=== PATIENT | female | born 1950 | race Caucasian/White ===

== ENCOUNTER → 2016-06-19 | Outpatient (CLI) | payer OTHER ==
[~2016-06-19] MED LIST: ACET-1311 PO; ACET650S10 PR; BISA10SU38 PR; CHOL1CAP57 PO; CLC100X PO; CRAN1CAP6 PO; CRAN1TAB9 PO; CRANLIQ PO; CYCL10TA6 PO; DEXT30TA7 PO; ESCI1TAB10 PO; GABA300C19 PO; GLAT1INJ SC; METH-1117 PO; MOML PO; MTR500 PO; NORT75CA PO; NUTR-238 PO; POLY335025 PO; PRED10TA PO; RISP1TAB68 PO; SACC250C PO; SENN1TAB66 PO; SODIENE PR; TRAM-10 PO
[2016-06-19 13:59] LABS: URINE APPEARANCE TURBID (CLEAR); URINE BILIRUBIN NEG (NEG); URINE COLOR DK YELLOW; URINE NITRITE POS (NEG); URINE PH 5.5 (4.5-7.5); URINE SPECIFIC GRAVITY 1.018 (1.000-1.030); UROBILINOGEN NEG (NEG)
[2016-06-19 14:21] LABS: MANUAL MICROSCOPIC REQUIRED? NO; REVIEW REQ? YES
== END ==
LOC: C.LABCC 12:15
PROVIDERS: ATTEND Internal Medicine
DX: R41.82 Altered mental status, unspecified (principal)

== ENCOUNTER → 2016-08-13 | Outpatient (CLI) | payer OTHER ==
[2016-08-13 08:46] LABS: URINE APPEARANCE CLEAR (CLEAR); URINE BILIRUBIN NEG (NEG); URINE COLOR DK YELLOW; URINE NITRITE NEG (NEG); URINE PH 5.5 (4.5-7.5); URINE SPECIFIC GRAVITY 1.022 (1.000-1.030); UROBILINOGEN NEG (NEG)
[2016-08-13 08:47] LABS: MANUAL MICROSCOPIC REQUIRED? NO; REVIEW REQ? NO
== END ==
LOC: C.LABCC 08:06
PROVIDERS: ATTEND Internal Medicine
DX: R41.0 Disorientation, unspecified (principal); R53.1 Weakness

== ENCOUNTER → 2016-08-30 | Outpatient (CLI) | payer OTHER ==
[2016-08-30 15:16] LABS: URINE APPEARANCE TURBID (CLEAR); URINE BILIRUBIN NEG (NEG); URINE COLOR DK YELLOW; URINE NITRITE POS (NEG); URINE SPECIFIC GRAVITY 1.018 (1.000-1.030); UROBILINOGEN NEG (NEG)
[2016-08-30 15:17] LABS: MANUAL MICROSCOPIC REQUIRED? NO
[2016-08-30 16:00] LABS: REVIEW REQ? NO
== END ==
LOC: C.LABCC 11:11
PROVIDERS: ATTEND Internal Medicine
DX: R41.82 Altered mental status, unspecified (principal)

== ENCOUNTER → 2016-09-01 | Outpatient (CLI) | payer OTHER ==
[2016-09-01 10:01] LABS: BASO % 0.5 %; BASO ABS # 0.03 K/uL (0-0.2); COMPLETE YES; EOS % 3.6 %; HEMATOCRIT 39.3 % (37-47); IG% 0.2 %; LYMPH ABS # 1.78 K/uL (1.2-3.4); MEAN CELL VOLUME 89.1 fL (80-100); MEAN CORPUSCULAR HGB CONC 32.6 g/dl (32-36); MEAN PLATELET VOLUME 13.4 fL (7.4-10.4); MONO % 6.3 %; NEUT % 57.4 %; PLATELET COUNT 190 K/uL (130-400); RED BLOOD COUNT 4.41 M/uL (4.2-5.4); WHITE BLOOD COUNT 5.57 K/uL (4.8-10.8)
[2016-09-01 10:10] LABS: ALT/SGPT 9 U/L (12-78); AST/SGOT 9 U/L (15-37); BLOOD UREA NITROGEN 20 mg/dl (7-18); CALCIUM 9.3 mg/dl (8.5-10.1); CARBON DIOXIDE 31 mmol/L (21-32); CHLORIDE 106 mmol/L (98-107); CREATININE 0.47 mg/dl (0.60-1.20); GLUCOSE 73 mg/dl (70-99); SODIUM 142 mmol/L (136-145)
[2016-09-01 10:20] LABS: ALB/GLOB RATIO 0.8 (0.9-2); ALKALINE PHOSPHATASE 59 U/L (45-117); THYROID STIMULATING HORMONE 0.935 uIu/ml (0.300-4.500)
--- NOTE | 2016-09-05 11:46 | CODING QUERY MEDICAL NECESSITY ---
SUPPORTING DIAGNOSIS NEEDED A supporting diagnosis is required for the test/procedure performed on this patient in order for us to be reimbursed by the patient's insurance. Please provide a supporting diagnosis for the following test/procedure listed below next to the test name along with your signature. *If there is no additional diagnosis for this patient that would support the following test/procedure please document that below next to the test/procedure. Test(s)/Procedure(s) that require a supporting diagnosis: DOS 09/01 * Vitamin D DIAGNOSIS: * Vitamin B12 DIAGNOSIS: * TSH DIAGNOSIS: Provider Signature: Date: Thank you Shantal Wallace Health Information Management Once completed, please kindly fax back to [phone] For questions please call [phone]
== END ==
LOC: C.LABCC 09:25
PROVIDERS: ATTEND Internal Medicine
DX: G35 Multiple sclerosis (principal); R41.81 Age-related cognitive decline

== ENCOUNTER → 2016-09-29 | Outpatient (CLI) | payer OTHER ==
[~2016-09-29] MED LIST changes: +GABA-1218 PO; -GABA300C19 PO
[2016-09-29 18:22] LABS: URINE APPEARANCE TURBID (CLEAR); URINE BILIRUBIN NEG (NEG); URINE COLOR YELLOW; URINE EPITHELIAL CELL AUTO 0-5 /lpf (0-5); URINE NITRITE NEG (NEG); URINE PH 6.5 (4.5-7.5); URINE SPECIFIC GRAVITY 1.014 (1.000-1.030); UROBILINOGEN NEG (NEG)
[2016-09-29 18:23] LABS: MANUAL MICROSCOPIC REQUIRED? NO; REVIEW REQ? NO
== END ==
LOC: C.LABCC 17:41
PROVIDERS: ATTEND Internal Medicine
DX: R41.82 Altered mental status, unspecified (principal)

== ENCOUNTER → 2016-11-13 | Outpatient (CLI) | payer OTHER | END | disposition home or self-care (01) | LOC: C.LABCC 07:57 | PROVIDERS: ATTEND Internal Medicine | DX: T14.8 Other injury of unspecified body region (principal); X58.XXXA Exposure to other specified factors, initial encounter ==

== ENCOUNTER → 2016-11-27 | Outpatient (CLI) | payer OTHER ==
[2016-11-27 08:55] LABS: ALT/SGPT 10 U/L (12-78); BLOOD UREA NITROGEN 26 mg/dl (7-18); BUN/CREATININE RATIO 55.5 (10-20); CARBON DIOXIDE 30 mmol/L (21-32); CHLORIDE 109 mmol/L (98-107); CHOLESTEROL 134 mg/dl (0-200); CREATININE 0.47 mg/dl (0.60-1.20); GLUCOSE 76 mg/dl (70-99); POTASSIUM 3.5 mmol/L (3.5-5.1); SODIUM 147 mmol/L (136-145); TRIGLYCERIDES 67 mg/dl (0-150); VERY LOW DENSITY LIPOPROT CALC 13 mg/dl
[2016-11-27 08:59] LABS: ALB/GLOB RATIO 0.9 (0.9-2); ALKALINE PHOSPHATASE 56 U/L (45-117); AST/SGOT 8 U/L (15-37); CHOLESTEROL/HDL RATIO 3.3; HDL CHOLESTEROL 41 mg/dl; LDL CHOLESTEROL CALCULATED 80 mg/dl
== END ==
LOC: C.LABCC 07:51
PROVIDERS: ATTEND Internal Medicine
DX: G35 Multiple sclerosis (principal); E55.9 Vitamin D deficiency, unspecified; E78.5 Hyperlipidemia, unspecified

== ENCOUNTER → 2016-12-04 | Outpatient (CLI) | payer OTHER ==
[~2016-12-04] MED LIST changes: -GABA-1218 PO; +GABA300C19 PO
== END ==
LOC: C.LABCC 07:47
PROVIDERS: ATTEND Internal Medicine
DX: E55.9 Vitamin D deficiency, unspecified (principal)

== ENCOUNTER 2017-02-12 10:23 | Inpatient (IN) | payer OTHER ==
[~2017-02-12] VITALS: Ht 165.1 cm; Wt 39.9 kg
[~2017-02-12 10:23] MED LIST changes: -CHOL1CAP57 PO; -CRAN1CAP6 PO; -METH-1117 PO
[2017-02-12] MEDS ORDERED: SODIUM CHLORIDE 0.9% 1000ML 1,000 ML IV ONE (10:54)
[2017-02-12 11:09] LABS: BASO % 0.4 %; BASO ABS # 0.04 K/uL (0-0.2); COMPLETE YES; HEMATOCRIT 46.5 % (37-47); IG% 0.1 %; LYMPH % 15.6 %; MEAN CELL VOLUME 88.2 fL (80-100); MEAN CORPUSCULAR HEMOGLOBIN 28.5 pg (25-34); MEAN CORPUSCULAR HGB CONC 32.3 g/dl (32-36); MEAN PLATELET VOLUME 12.5 fL (7.4-10.4); MONO % 4.2 %; NEUT % 79.7 %; PLATELET COUNT 279 K/uL (130-400); RED BLOOD COUNT 5.27 M/uL (4.2-5.4); WHITE BLOOD COUNT 8.97 K/uL (4.8-10.8)
--- NOTE | 2017-02-12 11:15 | DIAGNOSTIC IMAGING REPORT ---
SINGLE VIEW CHEST CLINICAL HISTORY: Sepsis. FINDINGS: An AP, portable, semierect chest radiograph is compared to study dated 08/30/2015. Correlation is made with chest CT dated 10/12/2014. The examination is severely degraded by portable technique, apical lordotic positioning, and patient rotation. The heart is normal in size and there is atherosclerotic calcification with uncoiling of the thoracic aorta. No airspace consolidation or large pleural effusion is seen. Apparent density at the right apex is likely related to significant patient rotation. No pneumothorax is seen. The skeletal structures are osteopenic. The bony thorax is grossly intact. IMPRESSION: No acute cardiopulmonary abnormality. Electronically signed by: Flaco Mar M.D. 02/12/2017 11:14 AM Dictated Date/Time: 02/12/2017 11:12 AM
[2017-02-12 11:17] LABS: ALT/SGPT 10 U/L (12-78); BLOOD UREA NITROGEN 27 mg/dl (7-18); BUN/CREATININE RATIO 85.6 (10-20); CALCIUM 10.2 mg/dl (8.5-10.1); CARBON DIOXIDE 22 mmol/L (21-32); CHLORIDE 106 mmol/L (98-107); CREATININE 0.32 mg/dl (0.60-1.20); GLUCOSE 75 mg/dl (70-99); POTASSIUM 3.6 mmol/L (3.5-5.1); SODIUM 141 mmol/L (136-145)
[2017-02-12 11:20] LABS: URINE APPEARANCE TURBID (CLEAR); URINE BILIRUBIN NEG (NEG); URINE COLOR DK YELLOW; URINE EPITHELIAL CELL AUTO >30 /lpf (0-5); URINE NITRITE POS (NEG); URINE PH 5.5 (4.5-7.5); URINE SPECIFIC GRAVITY 1.025 (1.000-1.030); UROBILINOGEN NEG (NEG); ZZURINE CULT IF INDIC CATH YES
[2017-02-12 11:22] LABS: ALB/GLOB RATIO 0.9 (0.9-2); ALKALINE PHOSPHATASE 70 U/L (45-117); AST/SGOT 13 U/L (15-37)
[2017-02-12 11:24] LABS: MANUAL MICROSCOPIC REQUIRED? NO; REVIEW REQ? YES
[2017-02-12] MEDS ORDERED: METH-1117 PO (11:33)
[2017-02-12] MEDS ORDERED: CHOL1CAP57 PO (11:33)
[2017-02-12] MEDS ORDERED: CRAN1CAP6 PO (11:33)
[2017-02-12 11:37] LABS: URINE MUCUS PRESENT (NONE PRSENT)
--- NOTE | 2017-02-12 11:46 | EMERGENCY ROOM VISIT NOTE ---
History Report prepared by Lulu: Andi Santiago Under the Supervision of: Dr. Cm Castañeda M.D. First contact with patient: 10:51 Chief Complaint: WEAKNESS Stated Complaint: LETHARGY/DEHYDRATION Nursing Triage Summary: pt from [facility]. reported last 3 days decreased appetite and increased lethargy. normal presentation as per rn at [facility] is "verbal and cooperative". currently eyes closed, occasional moaning. As per family "might be a UTI". ALS reports pt is DNR. History of Present Illness The patient is a 66 year old female who presents to the Emergency Room with complaints of constant weakness for the past three days. Per the patient's daughter the patient has been more lethargic, disoriented, and decreased appetite. Per the patient's daughter states that the patient has a slight chronic cough, she is incontinent, and she has a history of MS. The patient is denying any nausea or vomiting, though the daughter states the patient's breath smells like vomit. The daughter additionally states that the patient has been losing weight, though she states that the patient does not want a feeding tube. The patient is not on any blood thinners, but she takes gabapentin, and she gets a shot for her MS. The daughter states that the patient has not had any medications since Thursday since she has been refusing them. Source of History: patient, family Onset: three days ago Position: other (global) Quality: other (weakness) Timing: constant Associated Symptoms: + cough, No nausea, No vomiting Review of Systems See HPI for pertinent positives and negatives. A total of ten systems were reviewed and were otherwise negative. Past Medical & Surgical Medical Problems: (1) C. difficile colitis (2) Chest pain (3) Confusion (4) Multiple sclerosis (5) Neuropathic pain (6) Pneumobilia (7) Sepsis (8) Weakness Family History FH: brain aneurysm FH: cancer Social History Smoking Status: Unknown if Ever Smoked Alcohol Use: none Drug Use: none Marital Status: single, Housing Status: assisted living Occupation Status: unemployed Current/Historical Medications Scheduled Bisacodyl (Dulcolax), 1 SUPP ND Q2D Cholecalciferol (Vitamin D3), 1,000 UNITS PO DAILY Cranberry (Vaccinium Macrocarp (Cranberry), 250 MG PO BID Escitalopram Oxalate (Lexapro), 20 MG PO DAILY Gabapentin (Neurontin), 300 MG PO QID Glatiramer Acetate (Copaxone), 40 MG SC 3XWK Magnesium Hydroxide (Milk Of Magnesia), 30 ML PO UD Methenamine Hippurate (Hiprex), 1 GM PO BID Nortriptyline Hcl (Pamelor), 75 MG PO QPM Nutritional Supplements (Nutritional Drink), 180 ML PO QID Polyethylene Glycol 3350 (Miralax), 17 GM PO QD@1200 Risperidone (Risperdal), 1 MG PO HS Sennosides-Docusate Sodium (Senna/Docusate Sodium), 2 TAB PO BID Tramadol (Ultram), 50 MG PO HS Scheduled PRN Acetaminophen (Tylenol), 650 MG PO Q4H PRN for Mild Pain Acetaminophen (Tylenol), 650 MG ND Q4H PRN for MILD PAIN Sodium Phosphate/Biphosphate (Fleet Enema), 1 EA ND DAILY PRN for Constipation Allergies Coded Allergies: Latex (Verified Allergy, Mild, ., 02/12/17) Physical Exam Vital Signs Date Time Temp Pulse Resp B/P (MAP) Pulse Ox O2 Delivery O2 Flow Rate FiO2 02/12/17 14:23 77 145/92 97 Room Air 02/12/17 13:30 95 Room Air 02/12/17 13:01 71 16 141/85 95 Room Air 02/12/17 12:12 81 16 167/103 98 Room Air 02/12/17 11:19 86 18 145/95 96 Room Air 02/12/17 11:09 Room Air 02/12/17 10:41 83 02/12/17 10:30 36.4 77 24 152/101 94 Room Air Physical Exam GENERAL: Awake, chronically ill-appearing, in no distress HENT: Dry mucous membranes. Thrush on her tongue and posterior pharynx. Normocephalic, atraumatic. Oropharynx unremarkable. EYES: Normal conjunctiva. Sclera non-icteric. NECK: Supple. No nuchal rigidity. FROM. No JVD. RESPIRATORY: Decreased breath sounds bilaterally. CARDIAC: Regular rate, normal rhythm. Extremities warm and well perfused. Pulses equal. ABDOMEN: Soft, non-distended. No tenderness to palpation. No rebound or guarding. No masses. RECTAL: Deferred. MUSCULOSKELETAL: Chest examination reveals no tenderness. The back is symmetrical on inspection without obvious abnormality. There is no CVA tenderness to palpation. No joint edema. LOWER EXTREMITIES: Calves are equal size bilaterally and non-tender. No edema. No discoloration. NEURO: 3/5 strength in all extremities. Appears alert to self. Follows some basic commands. Motor is limited from her MS. Normal sensorium. No sensory deficits noted. SKIN: No rash or jaundice noted. Medical Decision & Procedures ER Provider Diagnostic Interpretation: Radiology results as stated below per my review and radiologist interpretation: CT SCAN OF THE BRAIN WITHOUT IV CONTRAST CLINICAL HISTORY: Lethargy. Dehydration. COMPARISON STUDY: CT of the brain dated 08/02/2015. TECHNIQUE: Unenhanced axial CT scan of the brain is performed from the vertex to the skull base. The examination is degraded by motion artifact. The patient was scanned twice in an attempt to improve image quality. The examination is also degraded by suboptimal positioning within the CT gantry. CT DOSE: 1277.12 mGycm FINDINGS: Brain parenchyma: There are age-related involutional changes noting moderate patchy subcortical and periventricular microangiopathic change. There is no hemorrhage, mass effect, or evidence of acute territorial ischemia by CT criteria. Chronic lacunar infarcts are present within the subcortical and periventricular white matter. Rubio-white matter is preserved. No extra-axial fluid collection is seen. Ventricles, sulci, cisterns: Prominent secondary to involutional change. Intracranial vasculature: There is atherosclerotic calcification of the cavernous carotid vertebral arteries. Calvarium: Unremarkable. Sinuses and mastoids: The visualized paranasal sinuses are clear. The mastoid air cells are well pneumatized. Orbits: The bony orbits are grossly intact. There are bilateral ocular lens implants. IMPRESSION: There is no hemorrhage, mass effect, or evidence of acute territorial ischemia by CT criteria noting a motion degraded examination. Electronically signed by: Flaco Mar M.D. 02/12/2017 11:50 AM Dictated Date/Time: 02/12/2017 11:47 AM SINGLE VIEW CHEST CLINICAL HISTORY: Sepsis. FINDINGS: An AP, portable, semierect chest radiograph is compared to study dated 08/30/2015. Correlation is made with chest CT dated 10/12/2014. The examination is severely degraded by portable technique, apical lordotic positioning, and patient rotation. The heart is normal in size and there is atherosclerotic calcification with uncoiling of the thoracic aorta. No airspace consolidation or large pleural effusion is seen. Apparent density at the right apex is likely related to significant patient rotation. No pneumothorax is seen. The skeletal structures are osteopenic. The bony thorax is grossly intact. IMPRESSION: No acute cardiopulmonary abnormality. Electronically signed by: Flaco Mar M.D. 02/12/2017 11:14 AM Dictated Date/Time: 02/12/2017 11:12 AM Laboratory Results 02/12/17 10:38 Red Blood Count 5.27, Mean Corpuscular Volume 88.2, Mean Corpuscular Hemoglobin 28.5, Mean Corpuscular Hemoglobin Concent 32.3, Mean Platelet Volume 12.5, Neutrophils (%) (Auto) 79.7, Lymphocytes (%) (Auto) 15.6, Monocytes (%) (Auto) 4.2, Eosinophils (%) (Auto) 0.0, Basophils (%) (Auto) 0.4, Neutrophils # (Auto) 7.14, Lymphocytes # (Auto) 1.40, Monocytes # (Auto) 0.38, Eosinophils # (Auto) 0.00, Basophils # (Auto) 0.04 02/12/17 10:38 Test 02/12/17 10:38 02/12/17 10:55 02/12/17 11:35 White Blood Count 8.97 K/uL (4.8-10.8) Red Blood Count 5.27 M/uL (4.2-5.4) Hemoglobin 15.0 g/dL (12.0-16.0) Hematocrit 46.5 % (37-47) Mean Corpuscular Volume 88.2 fL (80-100) Mean Corpuscular Hemoglobin 28.5 pg (25-34) Mean Corpuscular Hemoglobin Concent 32.3 g/dl (32-36) Platelet Count 279 K/uL (130-400) Mean Platelet Volume 12.5 fL (7.4-10.4) Neutrophils (%) (Auto) 79.7 % Lymphocytes (%) (Auto) 15.6 % Monocytes (%) (Auto) 4.2 % Eosinophils (%) (Auto) 0.0 % Basophils (%) (Auto) 0.4 % Neutrophils # (Auto) 7.14 K/uL (1.4-6.5) Lymphocytes # (Auto) 1.40 K/uL (1.2-3.4) Monocytes # (Auto) 0.38 K/uL (0.11-0.59) Eosinophils # (Auto) 0.00 K/uL (0-0.5) Basophils # (Auto) 0.04 K/uL (0-0.2) RDW Standard Deviation 44.8 fL (36.4-46.3) RDW Coefficient of Variation 13.9 % (11.5-14.5) Immature Granulocyte % (Auto) 0.1 % Immature Granulocyte # (Auto) 0.01 K/uL (0.00-0.02) Prothrombin Time 11.0 SECONDS (9.0-12.0) Prothromb Time International Ratio 1.0 (0.9-1.1) Anion Gap 13.0 mmol/L (3-11) Estimated GFR () 135.4 Estimated GFR (Non- 116.8 BUN/Creatinine Ratio 85.6 (10-20) Calcium Level 10.2 mg/dl (8.5-10.1) Total Bilirubin 0.9 mg/dl (0.2-1) Aspartate Amino Transf (AST/SGOT) 13 U/L (15-37) Alanine Aminotransferase (ALT/SGPT) 10 U/L (12-78) Alkaline Phosphatase 70 U/L (45-117) Troponin I < 0.015 ng/ml (0-0.045) Total Protein 7.4 gm/dl (6.4-8.2) Albumin 3.5 gm/dl (3.4-5.0) Globulin 3.9 gm/dl (2.5-4.0) Albumin/Globulin Ratio 0.9 (0.9-2) Urine Color DK YELLOW Urine Appearance TURBID (CLEAR) Urine pH 5.5 (4.5-7.5) Urine Specific [place] 1.025 (1.000-1.030) Urine Protein 2+ (NEG) Urine Glucose (UA) NEG (NEG) Urine Ketones 4+ (NEG) Urine Occult Blood 3+ (NEG) Urine Nitrite POS (NEG) Urine Bilirubin NEG (NEG) Urine Urobilinogen NEG (NEG) Urine Leukocyte Esterase LARGE (NEG) Urine WBC (Auto) >30 /hpf (0-5) Urine RBC (Auto) >30 /hpf (0-4) Urine Hyaline Casts (Auto) 1-5 /lpf (0-5) Urine Epithelial Cells (Auto) >30 /lpf (0-5) Urine Bacteria (Auto) NEG (NEG) Urine Crystals AMORPHOUS SEDIMENT (NONE Urine Pathogenic Casts /lpf (0) Urine Mucus PRESENT (NONE PRSENT) Urine Yeast (Auto) (NONE PRSENT) Lactic Acid Level 1.5 mmol/L (0.4-2.0) Laboratory results reviewed by me Medications Administered Medications (Trade) Dose Ordered Sig/Jen Route Start Time Stop Time Status Last Admin Dose Admin Sodium Chloride 1,000 ml @ 999 mls/hr Q1H1M ONCE IV 02/12/17 10:54 02/12/17 11:54 DC 02/12/17 11:19 999 MLS/HR Piperacillin Sod/ Tazobactam Sod (Zosyn Iv) 4.5 gm NOW STAT IV 02/12/17 12:42 02/12/17 12:44 DC 02/12/17 12:42 4.5 GM Vancomycin HCl (Vancomycin 1gm/ 270ml Nss) 1 gm NOW STAT IV 02/12/17 12:42 02/12/17 12:44 DC 02/12/17 12:51 1 GM Sodium Chloride 1,000 ml @ 999 mls/hr Q1H1M STAT IV 02/12/17 12:42 02/12/17 13:42 DC 02/12/17 12:52 999 MLS/HR ECG Indication: weakness Rate (beats per minute): 93 Rhythm: sinus rhythm Findings: nonspecific-ST abn (Lateral), PVC (occasional), left axis deviation Comparison ECG Date: 08/03 Change: no significant change ED Course 1051: The patient was evaluated in room A10. A complete history and physical exam was performed. 1054: Sodium Chloride 1000 ml @ 999 mls/hr IV 1242: Sodium Chloride 1000 ml @ 999 mls/hr IV, Vancomycin HCl 1gm IV, Zosyn IV 4.5gm IV 1249: Discussed the patient's case with Dr. Saba, [facility] Hospitalist. The patient will be evaluated for further treatment and disposition. Medical Decision I reviewed the patient's past medical history, medications, and the nursing notes as described above. Differential diagnoses: Sepsis, pneumonia, UTI, dehydration. electrolyte abnormality, and intracranial hemorrhage. The patient is a 66-year-old woman with a past medical history of MS who presents from her alf facility with worsening mental status since Thursday and decreased oral intake per history of present illness. On arrival the patient will open her eyes and follow some simple commands but otherwise is limited in her motor function diffusely in the setting of her MS but worse from her recent baseline. Appears clinically dry. Otherwise is afebrile with stable vital signs. Septic eval initiated. Chest x-ray unremarkable. UA grossly positive. Given the patient's hospital exposures treated with broad- spectrum antibiotics at this time. Patient given IV fluid hydration, with BUN/ creatinine> 30 consistent with the patient's clinically dry appearance. Otherwise CT head negative and chest x-ray unremarkable. Case discussed with the medicine team who will admit the patient for further management. Medication Reconcilliation Current Medication List: was personally reviewed by me Blood Pressure Screening Patient's blood pressure: Elevated blood pressure Managed by the hospitalist Consults Time Called: 1247 Consulting Physician: Dr. Saba Returned Call: 1249 Discussed the patient's case with Dr. Saba, [facility] Hospitalist. The patient will be evaluated for further treatment and disposition. Impression Primary Impression: UTI (urinary tract infection) Additional Impression: Dehydration Scribe Attestation The scribe's documentation has been prepared under my direction and personally reviewed by me in its entirety. I confirm that the note above accurately reflects all work, treatment, procedures, and medical decision making performed by me. Departure Information Dispostion Being Evaluated By Hospitalist Referrals [facility] (PCP) Patient Instructions [facility] Problem Qualifiers
--- NOTE | 2017-02-12 11:51 | DIAGNOSTIC IMAGING REPORT ---
CT SCAN OF THE BRAIN WITHOUT IV CONTRAST CLINICAL HISTORY: Lethargy. Dehydration. COMPARISON STUDY: CT of the brain dated 08/02/2015. TECHNIQUE: Unenhanced axial CT scan of the brain is performed from the vertex to the skull base. The examination is degraded by motion artifact. The patient was scanned twice in an attempt to improve image quality. The examination is also degraded by suboptimal positioning within the CT gantry. CT DOSE: 1277.12 mGycm FINDINGS: Brain parenchyma: There are age-related involutional changes noting moderate patchy subcortical and periventricular microangiopathic change. There is no hemorrhage, mass effect, or evidence of acute territorial ischemia by CT criteria. Chronic lacunar infarcts are present within the subcortical and periventricular white matter. Rubio-white matter is preserved. No extra-axial fluid collection is seen. Ventricles, sulci, cisterns: Prominent secondary to involutional change. Intracranial vasculature: There is atherosclerotic calcification of the cavernous carotid vertebral arteries. Calvarium: Unremarkable. Sinuses and mastoids: The visualized paranasal sinuses are clear. The mastoid air cells are well pneumatized. Orbits: The bony orbits are grossly intact. There are bilateral ocular lens implants. IMPRESSION: There is no hemorrhage, mass effect, or evidence of acute territorial ischemia by CT criteria noting a motion degraded examination. Electronically signed by: Flaco Mar M.D. 02/12/2017 11:50 AM Dictated Date/Time: 02/12/2017 11:47 AM
[2017-02-12] MEDS ORDERED: PIPERACILLIN/TAZOBACTAM 4.5 GM/100ML D5W IV STA (12:42)
[2017-02-12] MEDS ORDERED: VANCOMYCIN 1GM/270ML NSS IV STA (12:42)
[2017-02-12] MEDS ORDERED: SODIUM CHLORIDE 0.9% 1000ML 1,000 ML IV STA (12:42)
[2017-02-12 13:30] VITALS: O2SAT 95; Ht 165.1 cm; Wt 39.9 kg
[2017-02-12] MEDS ORDERED: ACETAMINOPHEN 325 MG TAB PO PRN ×2 (14:00→14:45)
[2017-02-12] MEDS ORDERED: MAGNESIUM HYDROXIDE SUSP 30 ML UDC PO PRN ×2 (14:00→14:45)
[2017-02-12] MEDS ORDERED: POLYETHYLENE (MIRALAX) 17 GM PACK PO PRN (14:00)
[2017-02-12] MEDS ORDERED: NITROGLYCERIN 0.4 MG SL PER TAB CHARGE SL PRN (14:00)
[2017-02-12] MEDS ORDERED: ONDANSETRON INJ 2 MG/ML 2 ML VIAL IV PRN (14:00)
[2017-02-12] MEDS ORDERED: ENOXAPARIN 30 MG/0.3 ML SYR SC SCH (14:00)
--- NOTE | 2017-02-12 14:16 | History and Physical ---
History & Physical Date & Time of Service: Feb 12, 2017 at 14:05 Chief Complaint: Lethargy/Dehydration Primary Care Physician: Abebe Worrell History of Present Illness Source: patient Patient is a 66 year old female with a history of Multiple Sclerosis, Depression with Psychotic features, and urinary incontinence that presents with a 3 day history of weakness, confusion, and altered mental status. The patient is currently living at [facility] and is bed bound due to her Multiple Sclerosis. The family began noticing she was having an altered mental status Thursday and she has been refusing all of her medications since that time. The daughter describes an episode on Thursday where her aunt was trying to wake her while visiting at [facility] and having difficulty arousing which is unusual. Over the last 2 days the family has been monitoring her progress and she has not been improving, continuing to decline in terms of her cognitive and physical functioning so they decided to bring her to the emergency department. The daughter also mentions that she has been experiencing a significant weight loss over the last few months and is frequently not wanting to eat. Past Medical/Surgical History Medical Problems: (1) Multiple sclerosis Status: Chronic (2) Neuropathic pain Status: Chronic Family History FH: brain aneurysm FH: cancer Social History Smoking Status: Unknown if Ever Smoked Drug Use: none Marital Status: single, Occupational Status: unemployed Immunizations History of Influenza Vaccine: No History of Tetanus Vaccine?: cannot remember her last immunization History of Pneumococcal: No History of Hepatitis B Vaccine: No Multi-Drug Resistant Organisms History of MDRO: No Allergies Coded Allergies: Latex (Verified Allergy, Mild, ., 02/12/17) Home Medications Scheduled Bisacodyl (Dulcolax), 1 SUPP OR Q2D Cholecalciferol (Vitamin D3), 1,000 UNITS PO DAILY Cranberry (Vaccinium Macrocarp (Cranberry), 250 MG PO BID Escitalopram Oxalate (Lexapro), 20 MG PO DAILY Gabapentin (Neurontin), 300 MG PO QID Glatiramer Acetate (Copaxone), 40 MG SC 3XWK Magnesium Hydroxide (Milk Of Magnesia), 30 ML PO UD Methenamine Hippurate (Hiprex), 1 GM PO BID Nortriptyline Hcl (Pamelor), 75 MG PO QPM Nutritional Supplements (Nutritional Drink), 180 ML PO QID Polyethylene Glycol 3350 (Miralax), 17 GM PO QD@1200 Risperidone (Risperdal), 1 MG PO HS Sennosides-Docusate Sodium (Senna/Docusate Sodium), 2 TAB PO BID Tramadol (Ultram), 50 MG PO HS Scheduled PRN Acetaminophen (Tylenol), 650 MG PO Q4H PRN for Mild Pain Acetaminophen (Tylenol), 650 MG OR Q4H PRN for MILD PAIN Sodium Phosphate/Biphosphate (Fleet Enema), 1 EA OR DAILY PRN for Constipation Review of Systems Review of systems was obtained from accompanying daughter Constitutional: + fatigue, No fever, No chills, No sweats Respiratory: + cough, + sputum, No wheezing, No shortness of breath Cardiovascular: No chest pain, No palpitations Abdomen: No pain, No nausea, No vomiting, No diarrhea Genitourinary - Female: + urinary incontinence, No dysuria Neurologic: + memory loss, + weakness Integumentary: + problem reported (ulcer over left ankle) Physical Exam Vital Signs Date Time Temp Pulse Resp B/P (MAP) Pulse Ox O2 Delivery O2 Flow Rate FiO2 02/12/17 13:01 71 16 141/85 95 Room Air 02/12/17 12:12 81 16 167/103 98 Room Air 02/12/17 11:19 86 18 145/95 96 Room Air 02/12/17 11:09 Room Air 02/12/17 10:41 83 02/12/17 10:30 36.4 77 24 152/101 94 Room Air General Appearance: no apparent distress, + cachetic Head: normocephalic, atraumatic Eyes: normal inspection, sclerae normal Respiratory/Chest: chest non-tender, no respiratory distress, no accessory muscle use, + decreased breath sounds Cardiovascular: regular rate, rhythm, no edema, no gallop, no murmur Abdomen/GI: normal bowel sounds, non tender, soft Extremities/Musculoskelatal: no calf tenderness, no pedal edema Neurologic/Psych: alert, + disoriented, + pertinent finding (Non responsive) Skin: normal color, + pertinent finding (Stage 2 ulcer over left ankle, c/d/i) Diagnostics Laboratory Results Results Past 24 Hours Test 02/12/17 10:38 02/12/17 10:55 02/12/17 11:35 Range/Units White Blood Count 8.97 4.8-10.8 K/uL Red Blood Count 5.27 4.2-5.4 M/uL Hemoglobin 15.0 12.0-16.0 g/dL Hematocrit 46.5 37-47 % Mean Corpuscular Volume 88.2 80-100 fL Mean Corpuscular Hemoglobin 28.5 25-34 pg Mean Corpuscular Hemoglobin Concent 32.3 32-36 g/dl Platelet Count 279 130-400 K/uL Mean Platelet Volume 12.5 7.4-10.4 fL Neutrophils (%) (Auto) 79.7 % Lymphocytes (%) (Auto) 15.6 % Monocytes (%) (Auto) 4.2 % Eosinophils (%) (Auto) 0.0 % Basophils (%) (Auto) 0.4 % Neutrophils # (Auto) 7.14 1.4-6.5 K/uL Lymphocytes # (Auto) 1.40 1.2-3.4 K/uL Monocytes # (Auto) 0.38 0.11-0.59 K/uL Eosinophils # (Auto) 0.00 0-0.5 K/uL Basophils # (Auto) 0.04 0-0.2 K/uL RDW Standard Deviation 44.8 36.4-46.3 fL RDW Coefficient of Variation 13.9 11.5-14.5 % Immature Granulocyte % (Auto) 0.1 % Immature Granulocyte # (Auto) 0.01 0.00-0.02 K/uL Prothrombin Time 11.0 9.0-12.0 SECONDS Prothromb Time International Ratio 1.0 0.9-1.1 Sodium Level 141 136-145 mmol/L Potassium Level 3.6 3.5-5.1 mmol/L Chloride Level 106 98-107 mmol/L Carbon Dioxide Level 22 21-32 mmol/L Anion Gap 13.0 3-11 mmol/L Blood Urea Nitrogen 27 7-18 mg/dl Creatinine 0.32 0.60-1.20 mg/dl Estimated GFR () 135.4 Estimated GFR (Non- 116.8 BUN/Creatinine Ratio 85.6 10-20 Random Glucose 75 70-99 mg/dl Calcium Level 10.2 8.5-10.1 mg/dl Total Bilirubin 0.9 0.2-1 mg/dl Aspartate Amino Transf (AST/SGOT) 13 15-37 U/L Alanine Aminotransferase (ALT/SGPT) 10 12-78 U/L Alkaline Phosphatase 70 45-117 U/L Troponin I < 0.015 0-0.045 ng/ml Total Protein 7.4 6.4-8.2 gm/dl Albumin 3.5 3.4-5.0 gm/dl Globulin 3.9 2.5-4.0 gm/dl Albumin/Globulin Ratio 0.9 0.9-2 Urine Color DK YELLOW Urine Appearance TURBID CLEAR Urine pH 5.5 4.5-7.5 Urine Specific [place] 1.025 1.000-1.030 Urine Protein 2+ NEG Urine Glucose (UA) NEG NEG Urine Ketones 4+ NEG Urine Occult Blood 3+ NEG Urine Nitrite POS NEG Urine Bilirubin NEG NEG Urine Urobilinogen NEG NEG Urine Leukocyte Esterase LARGE NEG Urine WBC (Auto) >30 0-5 /hpf Urine RBC (Auto) >30 0-4 /hpf Urine Hyaline Casts (Auto) 1-5 0-5 /lpf Urine Epithelial Cells (Auto) >30 0-5 /lpf Urine Bacteria (Auto) NEG NEG Urine Crystals AMORPHOUS SEDIMENT NONE PRSENT Urine Pathogenic Casts 0 /lpf Urine Mucus PRESENT NONE PRSENT Urine Yeast (Auto) NONE PRSENT Lactic Acid Level 1.5 0.4-2.0 mmol/L Microbiology Results 02/12/17 Blood Culture, Received Pending 02/12/17 Blood Culture, Received Pending 02/12/17 Urine Culture, Received Pending CXR normal Impression Assessment and Plan Patient is a 66 year old female that presents with a 3 day history of weakness and altered mental status 1) Altered mental status 2/2 Urinary Tract Infection - UA Shows elevated leukocyte esterase, nitrites, and 3+ gross blood - Urine Culture - Received dose of Vancomycin and Zosyn in the ED - Zosyn 3.375g q6h --> Previous urine culture from UTI was sensitive to Zosyn - CXR shows no acute cardiopulmonary abnormalities - CT Head shows no acute intracranial abnormalities - TSH, Folate, B12 2) History of Depression with Psychotic Features - Resume home antidepressants (Lexapro, Nortriptyline, Risperidone) 3) History of MS - Resume home Neurontin 300mg QID - Resume home Tramadol 50mg PO HS 4) Constipation - Senna - Dulcolax 5) Diet - Impact 180ml PO scheduled 6) DVT Prophylaxis - Lovenox 30mg q24 7) Code Status -Full Resuscitation 8) Disposition - Admit to Med/Surg - Return to [facility] on Discharge Level of Care Med/Surg Advanced Directives Existing Advance Directive: Yes Existing Power of Tin Dipper: Yes Resuscitation Status DO NOT RESUSCITATE VTE Prophylaxis VTE Risk Assessment Done? Y/N: Yes Risk Level: Moderate Given or contraindicated: Enoxaparin (Lovenox)SQ Social Service Consult None Apply Resident Tracking Resident Involvement: Resident Care Provided Care Provided: Adult Hospital Medicine Reviewed: Pt Seen/Exam by Me History Pt is unable to arouse and family is not present. Per resident, concern from family for worsening AMS, lethargy, appetite. Has been refusing meds. Unable to discuss with family personally, agree with resident report. Agree with HPI/ROS as noted. General Appearance: no apparent distress, thin Respiratory: normal breath sounds, no respiratory distress Cardiovascular: normal peripheral pulses, regular rate, rhythm Gastrointestinal: non tender, soft Extremities: non-tender, no pedal edema Neurologic/Psychiatric: alert, normal mood/affect, oriented x 3 Skin Characteristics: normal color, warm/dry Assessment/Plan Agree with plan as outlined above AMS, likely related to UTI given abn UA Urine cx pending Recent urine cx 08/2016 with multiple abx resistance, but sensi to zosyn Continue zosyn L ankle pressure ulcer
[2017-02-12] MEDS ORDERED: PNEUMOCOCCAL POLYSACCHARIDES 25 MCG/0.5 ML VIAL/SYR IM. ONE (14:45)
[2017-02-12] MEDS ORDERED: PNEUMOCOCCAL ADMINISTRATION CHARGE ONE (14:45)
[2017-02-12] MEDS ORDERED: PIPERACILL/TAZOBAC CONSULT ACTIVE PRN (15:00)
[2017-02-12 15:53] VITALS: BP 142/80; PULSE 80; TEMP 36.8; O2SAT 96
[2017-02-12] MEDS ORDERED: IMPACT LIQ 1000 ML BAG PO SCH (17:00)
[2017-02-12] MEDS: GABAPENTIN 300 MG CAP PO SCH ×2 (17:00→20:30)
[2017-02-12] MEDS: SODIUM CHLORIDE 0.9% 1000ML 1,000 ML IV SCH (17:42)
[2017-02-12] MEDS: PIPERACILL/TAZOBAC IV 3.375 GM in DEXTROSE 5% 100ML IV SCH (17:42)
[2017-02-12] MEDS ORDERED: PIPERACILL/TAZOBAC IV 3.375 GM in DEXTROSE 5% 100ML 100 ML IV SCH (18:00)
[2017-02-12] MEDS: TRAMADOL HCL 50 MG TAB PO SCH ×2 (20:23→20:34)
[2017-02-12] MEDS: BOOST VANILLA PO SCH ×2 (20:30)
[2017-02-12] MEDS: DOCUSATE SODIUM/SENNA 50/8.6MG TAB PO SCH (20:31)
[2017-02-12] MEDS: NORTRIPTYLINE HCL 25 MG CAP PO SCH (20:31)
[2017-02-12] MEDS: HEPARIN SOD 5000 UNIT/0.5 ML CARP SQ SCH (20:32)
[2017-02-12] MEDS: RISPERIDONE 1 MG TAB PO SCH (20:34)
[2017-02-13] VITALS (7 sets, daily range): BP systolic 130–152; BP diastolic 73–82; PULSE 68–75; TEMP 36.4–37; O2SAT 93–97
[2017-02-13] MEDS: PIPERACILL/TAZOBAC IV 3.375 GM in DEXTROSE 5% 100ML IV SCH ×3 (02:06→19:14)
--- NOTE | 2017-02-13 08:21 | Clinical Documentation Query ---
QUERY 1 OF [address] HENDERSON, In your clinical opinion is this patient being managed for: ( ) Metabolic encephalopathy due to UTI, dehydration ( ) Not Agree ( ) Other explanation of clinical findings (Please Explain) ( ) Unable to determine (Please Define) ( ) Need to Discuss - NOT MY PATIENT The medical record reflects the following clinical findings, treatment, and risk factors. Clinical Indicators: 66 yo female presenting with altered mental status and a UTI. CT head negative for acute findings Treatment: 2L NSS bolus, pending blood and urine cx, IV zosyn, IV vancomycin Risk Factors: age, UTI, MS, dehydration QUERY 2 OF 2 In your clinical opinion is this patient being managed for: ( ) Severe protein-calorie malnutrition ( ) Not Agree ( ) Other explanation of clinical findings (Please Explain) ( ) Unable to determine (Please Define) ( ) Need to Discuss - NOT MY PATIENT The medical record reflects the following clinical findings, treatment, and risk factors. Clinical Indicators: Pt documented as being cachectic. Daughter reports pt has had a significant wt loss over the last few months and does not want a feeding tube. Pt has had a 36% weight loss over the past 18 months. Treatment: dietary consult, boost supplement tid, IV fluids Risk Factors: MS, poor appetite, UTI, mental status changes Chronic Severe Malnutrition Criteria: (2 criteria needed) Energy intake: <75% of estimated energy requirement for > 1 month Wt loss: >5% in 1 month, > 7.5% in 3 months, >10% in 6 months, >20% in 1 year Body fat: severe loss of SQ fat from the orbits, triceps or fat overlying the ribs Muscle mass: severe muscle wasting at the temples, clavicles, shoulders, interosseous spaces, scapula, thigh, calf Fluid accumulation: severe localized or generalized edema of the extremities, vulva, scrotum-wt loss may be masked by edema Please clarify and document your clinical opinion in the progress notes and discharge summary. Terms such as "probable", "suspected", "likely", "questionable", "possible", or "still to be ruled out" are acceptable. IF IN AGREEMENT, YOU MUST DOCUMENT ABOVE DIAGNOSTIC STATEMENT IN DAILY PROGRESS NOTES AND DISCHARGE SUMMARY. This document is not part of the patient's record. Thank You, Naz Hudson RN [phone]
[2017-02-13] MEDS: NYSTATIN SUSP 500,000 U/5 ML UDC PO SCH ×5 (09:00→20:35)
[2017-02-13] MEDS ORDERED: BISACODYL 10 MG SUPP PR SCH (09:00)
[2017-02-13] MEDS: BOOST VANILLA PO SCH ×6 (09:00→20:35)
[2017-02-13] MEDS: ESCITALOPRAM OXALATE 20 MG TAB PO SCH (09:00)
[2017-02-13] MEDS: GABAPENTIN 300 MG CAP PO SCH ×4 (09:00→20:35)
[2017-02-13] MEDS: DOCUSATE SODIUM/SENNA 50/8.6MG TAB PO SCH ×2 (09:00→20:35)
[2017-02-13] MEDS: SACCHAROMYCES BOUL (FLORASTOR) 250 MG CAP PO SCH (09:00)
[2017-02-13] MEDS: ACETAMINOPHEN 650 MG SUPP PR PRN ×2 (09:16→16:02)
[2017-02-13] MEDS: HEPARIN SOD 5000 UNIT/0.5 ML CARP SQ SCH ×2 (09:22→21:00)
--- NOTE | 2017-02-13 10:02 | Family Medicine Progress Note ---
Progress Note Date of Service Feb 13, 2017. Subjective Pt evaluation today including: conversation w/ patient, physical exam, chart review, lab review, review of studies Pain: Patient confused this morning and not responding to questions Voiding: incontinence Patient resting comfortably in bed this morning with no acute events overnight. The patient was taken for a bath this morning by the nursing staff and appeared confused and was stating "don't hurt me". Patient was sleeping in bed this morning and would not respond to my questions. Additional Comments: Unable to obtain ROS this morning due to patient confusion Medications Current Inpatient Medications Medications (Trade) Dose Ordered Sig/Jen Route Start Time Stop Time Status Last Admin Dose Admin Acetaminophen (Tylenol Tab) 650 mg Q4H PRN PO 02/12/17 14:00 03/14/17 13:59 Magnesium Hydroxide (Milk Of Magnesia Susp) 30 ml Q12H PRN PO 02/12/17 14:00 03/14/17 13:59 Ondansetron HCl (Zofran Inj) 4 mg Q6H PRN IV 02/12/17 14:00 03/14/17 13:59 Polyethylene (Miralax Powder Packet) 17 gm DAILY PRN PO 02/12/17 14:00 03/14/17 13:59 Saccharomyces Boulardii (Florastor Cap) 250 mg DAILY PO 02/13/17 09:00 03/15/17 08:59 Acetaminophen (Tylenol Supp) 650 mg Q4H PRN SD 02/12/17 14:45 03/14/17 14:44 02/13/17 09:16 650 MG Bisacodyl (Dulcolax Supp) 10 mg Q2D@0900 SD 02/13/17 09:00 03/15/17 08:59 02/13/17 09:15 10 MG Escitalopram Oxalate (Lexapro Tab) 20 mg DAILY PO 02/13/17 09:00 03/15/17 08:59 Gabapentin (Neurontin Cap) 300 mg QID PO 02/12/17 17:00 03/14/17 16:59 Magnesium Hydroxide (Milk Of Magnesia Susp) 30 ml DAILY PRN PO 02/12/17 14:45 03/14/17 14:44 Nortriptyline HCl (Pamelor Cap) 75 mg QPM PO 02/12/17 21:00 03/14/17 20:59 Polyethylene (Miralax Powder Packet) 17 gm QD@1200 PO 02/13/17 12:00 03/15/17 11:59 Risperidone (Risperdal Tab) 1 mg HS PO 02/12/17 21:00 03/14/17 20:59 Senna/Docusate Sodium (Senokot S Tab) 2 tab BID PO 02/12/17 21:00 03/14/17 20:59 Tramadol HCl (Ultram Tab) 50 mg HS PO 02/12/17 21:00 03/14/17 20:59 Piperacillin Sod/ Tazobactam Sod (Consult) 1 ea UD PRN N/A 02/12/17 15:00 03/14/17 14:59 Heparin Sodium (Porcine) (Heparin Sq 5000 Unit/0.5ml) 5,000 unit Q12 SQ 02/12/17 21:00 03/14/17 20:59 02/13/17 09:22 5,000 UNIT Piperacillin Sod/ Tazobactam Sod 3.375 gm/Dextrose 115 ml @ 28.75 mls/ hr Q8@0200,1000,1800 IV 02/12/17 18:00 02/14/17 17:59 02/13/17 09:22 28.75 MLS/HR Enteral Nutritional Formula (Boost) 1 can TID PO 02/12/17 21:00 03/14/17 20:59 Sodium Chloride 1,000 ml @ 50 mls/hr Q20H IV 02/12/17 16:45 03/14/17 16:44 02/12/17 17:42 50 MLS/HR Nystatin (Mycostatin Susp) 5 ml QID PO 02/13/17 09:00 02/23/17 08:59 02/13/17 09:16 5 ML Objective Vital Signs Date Time Temp Pulse Resp B/P (MAP) Pulse Ox O2 Delivery O2 Flow Rate FiO2 02/13/17 07:47 37.0 72 16 132/82 (99) 97 Room Air 02/13/17 00:00 36.6 68 18 130/74 (92) 95 Room Air 02/13/17 00:00 Room Air 02/12/17 20:00 Room Air 02/12/17 16:00 Room Air 02/12/17 15:53 36.8 80 24 142/80 (100) 96 Room Air 02/12/17 14:55 81 16 145/92 98 02/12/17 14:23 77 145/92 97 Room Air 02/12/17 13:30 95 Room Air 02/12/17 13:01 71 16 141/85 95 Room Air 02/12/17 12:12 81 16 167/103 98 Room Air 02/12/17 11:19 86 18 145/95 96 Room Air 02/12/17 11:09 Room Air 02/12/17 10:41 83 02/12/17 10:30 36.4 77 24 152/101 94 Room Air Physical Exam General Appearance: WD/WN, + cachetic Eyes: normal inspection, sclerae normal Respiratory/Chest: chest non-tender, + decreased breath sounds Cardiovascular: regular rate, rhythm, no edema, no gallop Abdomen: normal bowel sounds, non tender, soft Extremities: non-tender, no pedal edema, + pertinent finding (Dressing c/d/i over left ankle) Neurologic/Psychiatric: + disoriented Laboratory Results Results Past 24 Hours Test 02/12/17 10:38 02/12/17 10:55 02/12/17 11:35 02/12/17 15:32 Range/Units White Blood Count 8.97 4.8-10.8 K/uL Red Blood Count 5.27 4.2-5.4 M/uL Hemoglobin 15.0 12.0-16.0 g/dL Hematocrit 46.5 37-47 % Mean Corpuscular Volume 88.2 80-100 fL Mean Corpuscular Hemoglobin 28.5 25-34 pg Mean Corpuscular Hemoglobin Concent 32.3 32-36 g/dl Platelet Count 279 130-400 K/uL Mean Platelet Volume 12.5 7.4-10.4 fL Neutrophils (%) (Auto) 79.7 % Lymphocytes (%) (Auto) 15.6 % Monocytes (%) (Auto) 4.2 % Eosinophils (%) (Auto) 0.0 % Basophils (%) (Auto) 0.4 % Neutrophils # (Auto) 7.14 1.4-6.5 K/uL Lymphocytes # (Auto) 1.40 1.2-3.4 K/uL Monocytes # (Auto) 0.38 0.11-0.59 K/uL Eosinophils # (Auto) 0.00 0-0.5 K/uL Basophils # (Auto) 0.04 0-0.2 K/uL RDW Standard Deviation 44.8 36.4-46.3 fL RDW Coefficient of Variation 13.9 11.5-14.5 % Immature Granulocyte % (Auto) 0.1 % Immature Granulocyte # (Auto) 0.01 0.00-0.02 K/uL Prothrombin Time 11.0 9.0-12.0 SECONDS Prothromb Time International Ratio 1.0 0.9-1.1 Sodium Level 141 136-145 mmol/L Potassium Level 3.6 3.5-5.1 mmol/L Chloride Level 106 98-107 mmol/L Carbon Dioxide Level 22 21-32 mmol/L Anion Gap 13.0 3-11 mmol/L Blood Urea Nitrogen 27 7-18 mg/dl Creatinine 0.32 0.60-1.20 mg/dl Estimated GFR () 135.4 Estimated GFR (Non- 116.8 BUN/Creatinine Ratio 85.6 10-20 Random Glucose 75 70-99 mg/dl Calcium Level 10.2 8.5-10.1 mg/dl Total Bilirubin 0.9 0.2-1 mg/dl Aspartate Amino Transf (AST/SGOT) 13 15-37 U/L Alanine Aminotransferase (ALT/SGPT) 10 12-78 U/L Alkaline Phosphatase 70 45-117 U/L Troponin I < 0.015 0-0.045 ng/ml Total Protein 7.4 6.4-8.2 gm/dl Albumin 3.5 3.4-5.0 gm/dl Globulin 3.9 2.5-4.0 gm/dl Albumin/Globulin Ratio 0.9 0.9-2 Urine Color DK YELLOW Urine Appearance TURBID CLEAR Urine pH 5.5 4.5-7.5 Urine Specific [place] 1.025 1.000-1.030 Urine Protein 2+ NEG Urine Glucose (UA) NEG NEG Urine Ketones 4+ NEG Urine Occult Blood 3+ NEG Urine Nitrite POS NEG Urine Bilirubin NEG NEG Urine Urobilinogen NEG NEG Urine Leukocyte Esterase LARGE NEG Urine WBC (Auto) >30 0-5 /hpf Urine RBC (Auto) >30 0-4 /hpf Urine Hyaline Casts (Auto) 1-5 0-5 /lpf Urine Epithelial Cells (Auto) >30 0-5 /lpf Urine Bacteria (Auto) NEG NEG Urine Crystals AMORPHOUS SEDIMENT NONE PRSENT Urine Pathogenic Casts 0 /lpf Urine Mucus PRESENT NONE PRSENT Urine Yeast (Auto) NONE PRSENT Lactic Acid Level 1.5 0.4-2.0 mmol/L Vitamin B12 Level 553 211-911 pg/mL Folate 13.48 >5.38 ng/mL Thyroid Stimulating Hormone (TSH) 0.679 0.300-4.500 uIu/ml Microbiology Results 02/12/17 Blood Culture, Received Pending 02/12/17 Blood Culture, Received Pending 02/12/17 Urine Culture - Preliminary, Resulted Escherichia Coli Assessment and Plan Patient is a 66 year old female that presents with a 3 day history of weakness and altered mental status 1) Metabolic Encephalopathy due to Urinary Tract Infection - Difficult to assess due to baseline psychiatric dysfunction in addition to physical dysfunction - Zosyn 3.375g q6h (Day 2) --> Previous urine culture from UTI was sensitive to Zosyn - Urine Culture -> E. Coli - UA Shows elevated leukocyte esterase, nitrites, and 3+ gross blood - Received dose of Vancomycin and Zosyn in the ED - CXR shows no acute cardiopulmonary abnormalities - CT Head shows no acute intracranial abnormalities - TSH - 0.679 - B12 - 553 - Folate - 13.48 2) Severe Protein Calorie Malnutrition - Patient remains altered and refuses home medications --> Attempted to call daughter this afternoon but did not answer. Will need to discuss options for nutrition tomorrow if still taking in nothing PO. Daughter did mention on admission that she does not want any feeding tubes placed. - IV NS at 50 ml/hr - Significant weight loss - 32% over last 18 months - Nutritional Consult - Impact 180ml PO scheduled 3) Clostridium Difficile Colitis - Flagyl IV 500mg TID - No taking anything PO at this time - Convert to PO medication once taking PO 4) Bacteremia? - Positive blood cultures --> Most likely contaminant - Currently grow gram positive cocci - Got 1 dose of Vanc in the ED and gave another 1gm dose this evening - Continue to follow blood cultures 5) Thrush - Nystatin swish and swallow 6) History of Depression with Psychotic Features - Resume home antidepressants (Lexapro, Nortriptyline, Risperidone) 7) History of MS - Resume home Neurontin 300mg QID - Resume home Tramadol 50mg PO HS 8) Constipation - Senna - Dulcolax 9) DVT Prophylaxis - Lovenox 30mg q24 10) Code Status - DNR 11) Disposition - Admit to Med/Surg - Return to [place] on Discharge Resident Physician Supervision Note: I interviewed and examined the patient. Discussed with Dr. Saba and agree with findings and plan as documented in the note. Any exceptions or clarifications are listed here: None Documented By: Aubrey Boyd repeats "i'm scared" but no other HPI or ROS. appearing in nad. vitals noted nad breahting unlabored no pallor or icterus UTI w metabolic encephalopathy and poor PO intake worsening severe protein calorie malnutrition - zosyn Cdiff - flagyl IV for now once reliably taking PO then PO positive blood culture - cover w vanco pending further ID&S, likely contaminant but already quite frail and has 2 clear known bacterial infections so risk is high DVT proph - will change to heparin SQ due to small body size otherwise as above Resident Tracking Resident Involvement: Resident Care Provided Care Provided: Adult Hospital Medicine
[2017-02-13] MEDS: POLYETHYLENE (MIRALAX) 17 GM PACK PO SCH (11:08)
[2017-02-13] MEDS: SODIUM CHLORIDE 0.9% 1000ML 1,000 ML IV SCH (13:07)
--- NOTE | 2017-02-13 14:12 | Clinical Documentation Query ---
QUERY 1 OF [address] BOYD, In your clinical opinion is this patient being managed for: ( ) Metabolic encephalopathy due to UTI ( ) Not Agree ( ) Other explanation of clinical findings (Please Explain) ( ) Unable to determine (Please Define) ( ) Need to Discuss The medical record reflects the following clinical findings, treatment, and risk factors. Clinical Indicators: 66 yo female presenting with altered mental status and a UTI. CT head negative for acute findings Treatment: 2L NSS bolus, pending blood and urine cx, IV zosyn, IV vancomycin Risk Factors: age, gender, MS, dehydration QUERY 2 OF 2 In your clinical opinion is this patient being managed for: ( ) Severe protein-calorie malnutrition ( ) Not Agree ( ) Other explanation of clinical findings (Please Explain) ( ) Unable to determine (Please Define) ( ) Need to Discuss The medical record reflects the following clinical findings, treatment, and risk factors. Clinical Indicators: Pt documented as being cachectic. Daughter reports pt has had a significant wt loss over the last few months and does not want a feeding tube. Pt has had a 36% weight loss over the past 18 months Treatment: dietary consult, boost supplement tid, IV fluids Risk Factors: MS, poor appetite, UTI, mental status changes Chronic Severe Malnutrition Criteria: (2 criteria needed) Energy intake: <75% of estimated energy requirement for > 1 month Wt loss: >5% in 1 month, > 7.5% in 3 months, >10% in 6 months, >20% in 1 year Body fat: severe loss of SQ fat from the orbits, triceps or fat overlying the ribs Muscle mass: severe muscle wasting at the temples, clavicles, shoulders, interosseous spaces, scapula, thigh, calf Fluid accumulation: severe localized or generalized edema of the extremities, vulva, scrotum-wt loss may be masked by edema Please clarify and document your clinical opinion in the progress notes and discharge summary. Terms such as "probable", "suspected", "likely", "questionable", "possible", or "still to be ruled out" are acceptable. IF IN AGREEMENT, YOU MUST DOCUMENT ABOVE DIAGNOSTIC STATEMENT IN DAILY PROGRESS NOTES AND DISCHARGE SUMMARY. This document is not part of the patient's record. Thank You, Naz Hudson RN [phone]
--- NOTE | 2017-02-13 14:14 | Clinical Documentation Query ---
QUERY 1 OF [address] MICHAEL, In your clinical opinion is this patient being managed for: ( x ) Metabolic encephalopathy due to UTI ( ) Not Agree ( ) Other explanation of clinical findings (Please Explain) ( ) Unable to determine (Please Define) ( ) Need to Discuss The medical record reflects the following clinical findings, treatment, and risk factors. Clinical Indicators: 66 yo female presenting with altered mental status and a UTI. CT head negative for acute findings Treatment: 2L NSS bolus, pending blood and urine cx, IV zosyn, IV vancomycin Risk Factors: age, gender, MS, dehydration QUERY 2 OF 2 In your clinical opinion is this patient being managed for: (x ) Severe protein-calorie malnutrition ( ) Not Agree ( ) Other explanation of clinical findings (Please Explain) ( ) Unable to determine (Please Define) ( ) Need to Discuss The medical record reflects the following clinical findings, treatment, and risk factors. Clinical Indicators: Pt documented as being cachectic. Daughter reports pt has had a significant wt loss over the last few months and does not want a feeding tube. Pt has had a 36% weight loss over the past 18 months Treatment: dietary consult, boost supplement tid, IV fluids Risk Factors: MS, poor appetite, UTI, mental status changes Chronic Severe Malnutrition Criteria: (2 criteria needed) Energy intake: <75% of estimated energy requirement for > 1 month Wt loss: >5% in 1 month, > 7.5% in 3 months, >10% in 6 months, >20% in 1 year Body fat: severe loss of SQ fat from the orbits, triceps or fat overlying the ribs Muscle mass: severe muscle wasting at the temples, clavicles, shoulders, interosseous spaces, scapula, thigh, calf Fluid accumulation: severe localized or generalized edema of the extremities, vulva, scrotum-wt loss may be masked by edema Please clarify and document your clinical opinion in the progress notes and discharge summary. Terms such as "probable", "suspected", "likely", "questionable", "possible", or "still to be ruled out" are acceptable. IF IN AGREEMENT, YOU MUST DOCUMENT ABOVE DIAGNOSTIC STATEMENT IN DAILY PROGRESS NOTES AND DISCHARGE SUMMARY. This document is not part of the patient's record. Thank You, Naz Hudson RN [phone]
[2017-02-13] MEDS ORDERED: VANCOMYCIN 1GM/270ML NSS IV STA (18:20)
[2017-02-13] MEDS ORDERED: VANCOMYCIN INJ 1,000 MG in SODIUM CHLORIDE 0.9% 250ML 250 ML IV ONE (19:00)
[2017-02-13] MEDS: NORTRIPTYLINE HCL 25 MG CAP PO SCH (20:35)
[2017-02-13] MEDS: RISPERIDONE 1 MG TAB PO SCH (20:35)
[2017-02-13] MEDS: TRAMADOL HCL 50 MG TAB PO SCH (20:35)
[2017-02-13] MEDS: METRONIDAZOLE / NSS 500 MG in PREMIXED NSS 100 ML IV SCH (21:06)
[2017-02-14] MEDS: PIPERACILL/TAZOBAC IV 3.375 GM in DEXTROSE 5% 100ML IV SCH ×2 (01:45→10:05)
[2017-02-14] MEDS: METRONIDAZOLE / NSS 500 MG in PREMIXED NSS 100 ML IV SCH ×3 (04:11→21:40)
[2017-02-14 07:13] VITALS: BP 133/65; PULSE 79; TEMP 37.1; O2SAT 97
[2017-02-14 07:44] LABS: CREATININE 0.25 mg/dl (0.60-1.20)
[2017-02-14] MEDS: SODIUM CHLORIDE 0.9% 1000ML 1,000 ML IV SCH (08:53)
[2017-02-14] MEDS: ESCITALOPRAM OXALATE 20 MG TAB PO SCH (09:00)
[2017-02-14] MEDS: SACCHAROMYCES BOUL (FLORASTOR) 250 MG CAP PO SCH (09:00)
[2017-02-14] MEDS: BOOST VANILLA PO SCH ×4 (09:00→13:56)
[2017-02-14] MEDS: HEPARIN SOD 5000 UNIT/0.5 ML CARP SQ SCH (09:00)
[2017-02-14] MEDS: DOCUSATE SODIUM/SENNA 50/8.6MG TAB PO SCH (09:00)
[2017-02-14] MEDS: GABAPENTIN 300 MG CAP PO SCH ×3 (09:00→17:00)
[2017-02-14] MEDS: NYSTATIN SUSP 500,000 U/5 ML UDC PO SCH ×4 (09:00→20:55)
[2017-02-14] MEDS: POLYETHYLENE (MIRALAX) 17 GM PACK PO SCH (12:00)
[2017-02-14 15:10] VITALS: BP 160/96; PULSE 78; TEMP 36.8; O2SAT 97
--- NOTE | 2017-02-14 16:59 | Family Medicine Progress Note ---
Progress Note Date of Service Feb 14, 2017. Subjective Pt evaluation today including: conversation w/ family Voiding: incontinence Pt unable to communicate to me. Per nurses and family, repeatedly shouting out "no, no" and "don't hurt me" Had multiple extensive conversations with both pt's sister and pt's daughter who is POA. We planned a family meeting for 5:30 this evening. They do not want a feeding tube for the patient, and we will discuss transition to comfort care. Additional Comments: Unable to obtain ROS from pt due to altered mental status Medications Current Inpatient Medications Medications (Trade) Dose Ordered Sig/Jen Route Start Time Stop Time Status Last Admin Dose Admin Acetaminophen (Tylenol Tab) 650 mg Q4H PRN PO 02/12/17 14:00 03/14/17 13:59 Magnesium Hydroxide (Milk Of Magnesia Susp) 30 ml Q12H PRN PO 02/12/17 14:00 03/14/17 13:59 Ondansetron HCl (Zofran Inj) 4 mg Q6H PRN IV 02/12/17 14:00 03/14/17 13:59 Polyethylene (Miralax Powder Packet) 17 gm DAILY PRN PO 02/12/17 14:00 03/14/17 13:59 Acetaminophen (Tylenol Supp) 650 mg Q4H PRN [place] 02/12/17 14:45 03/14/17 14:44 02/13/17 16:02 650 MG Escitalopram Oxalate (Lexapro Tab) 20 mg DAILY PO 02/13/17 09:00 03/15/17 08:59 Gabapentin (Neurontin Cap) 300 mg QID PO 02/12/17 17:00 03/14/17 16:59 Magnesium Hydroxide (Milk Of Magnesia Susp) 30 ml DAILY PRN PO 02/12/17 14:45 03/14/17 14:44 Nortriptyline HCl (Pamelor Cap) 75 mg QPM PO 02/12/17 21:00 03/14/17 20:59 Polyethylene (Miralax Powder Packet) 17 gm QD@1200 PO 02/13/17 12:00 03/15/17 11:59 Risperidone (Risperdal Tab) 1 mg HS PO 02/12/17 21:00 03/14/17 20:59 Tramadol HCl (Ultram Tab) 50 mg HS PO 02/12/17 21:00 03/14/17 20:59 Piperacillin Sod/ Tazobactam Sod (Consult) 1 ea UD PRN N/A 02/12/17 15:00 03/14/17 14:59 Heparin Sodium (Porcine) (Heparin Sq 5000 Unit/0.5ml) 5,000 unit Q12 SQ 02/12/17 21:00 03/14/17 20:59 02/13/17 09:22 5,000 UNIT Piperacillin Sod/ Tazobactam Sod 3.375 gm/Dextrose 115 ml @ 28.75 mls/ hr Q8@0200,1000,1800 IV 02/12/17 18:00 02/22/17 17:59 02/14/17 10:05 28.75 MLS/HR Enteral Nutritional Formula (Boost) 1 can TID PO 02/12/17 21:00 03/14/17 20:59 Sodium Chloride 1,000 ml @ 50 mls/hr Q20H IV 02/12/17 16:45 03/14/17 16:44 02/14/17 08:53 50 MLS/HR Nystatin (Mycostatin Susp) 5 ml QID PO 02/13/17 09:00 02/23/17 08:59 Metronidazole 500 mg/Prmx 100 ml @ 100 mls/hr Q8H IV 02/13/17 20:00 02/27/17 19:59 02/14/17 12:46 100 MLS/HR Bisacodyl (Dulcolax Supp) 10 mg Q2D@0900 PRN DE 02/15/17 09:00 03/15/17 08:59 Objective Vital Signs Date Time Temp Pulse Resp B/P (MAP) Pulse Ox O2 Delivery O2 Flow Rate FiO2 02/14/17 16:00 Room Air 02/14/17 15:10 36.8 78 16 160/96 (117) 97 Room Air 02/14/17 08:00 Room Air 02/14/17 07:13 37.1 79 16 133/65 (87) 97 Room Air 02/14/17 00:00 Room Air 02/13/17 23:46 36.7 75 18 144/80 (101) 97 Room Air 02/13/17 20:00 Room Air Physical Exam General Appearance: WD/WN, + cachetic, + thin Eyes: normal inspection, + pertinent finding (does not make eye contact, does not track movements) ENT: + pertinent finding (pt will not open mouth, lips are dryu) Neck: supple, no JVD Respiratory/Chest: lungs clear, no respiratory distress Cardiovascular: regular rate, rhythm, no murmur Abdomen: soft Extremities: no pedal edema Neurologic/Psychiatric: + disoriented Laboratory Results Last 24 Hours Test 02/14/17 06:29 Creatinine 0.25 mg/dl Est Creatinine Clear Calc Drug Dose 139.4 ml/min Estimated GFR () 146.8 Estimated GFR (Non- 126.7 Assessment and Plan 66 yo F, now bedbound, with end-stage multiple sclerosis, who presented from [facility] with a significant UTI and now has C Diff colitis. Pt is now not communicating, making eye contact, or able to recognize family members. Plan to be updated after discussion with family members regarding transition to comfort care. In meantime, antibiotics and IV fluids are running. Pt remains a DNR. Not for feeding or PEG tube. She is refusing all PO medications at this point. 5:30PM UPDATE: Met with patient's two daughters: Ophelia (POA), other daughter, and pt's sister privately. All were in agreement pt would want comfort care and they agreed with above plan and transition to comfort care at this point. Requested being on less busy floor, so that was discussed with charge nurse, who will move them to 4W. Discussed abx - will keep Flagyl FOR COMFORT due to C Diff for now, but will stop Zosyn and IV fluids for now. Provided and discussed reasons for Morphine and Ativan. Will sign out to night resident to be aware. Resident Physician Supervision Note: I interviewed and examined the patient. Discussed with Dr. Argueta and agree with findings and plan as documented in the note. Any exceptions or clarifications are listed here: None Documented By: Aubrey Boyd no HPI or ROS obtainable. Dr Argueta skillfully led family discussions, informed me of content. i was available immediately as needed by her or family request vitals noted laying in bed appearing comfortable but frail and malnourished metabolic encephalopathy related to UTI and Cdiff superimposed on what appears to be baseline of severe MS/depression -abx, supportive care -family discussions on goals of care severe protein calorie malnutrition -family discussion on goals of care otherwise as above Resident Tracking Resident Involvement: Resident Care Provided Care Provided: Adult [facility] Medicine
[2017-02-14] MEDS ORDERED: GLYCOPYRROLATE INJ 0.2 MG/ML VIAL IV PRN (18:00)
[2017-02-14] MEDS: LORAZEPAM INJ 1 MG in SYRINGE 0.5 ML IV PRN (21:40)
[2017-02-15] MEDS: METRONIDAZOLE / NSS 500 MG in PREMIXED NSS 100 ML IV SCH (03:47)
[2017-02-15] MEDS ORDERED: BISACODYL 10 MG SUPP PR PRN (09:00)
[2017-02-15] MEDS: NYSTATIN SUSP 500,000 U/5 ML UDC PO SCH ×4 (09:44→20:00)
[2017-02-15] MEDS ORDERED: LORAZEPAM INJ 0.5 MG in SYRINGE 0.75 ML IV PRN (10:00)
--- NOTE | 2017-02-15 10:05 | Family Medicine Progress Note ---
Progress Note Date of Service Feb 15, 2017. Subjective Pt evaluation today including: conversation w/ family, physical exam Voiding: guevara catheter in place Kathleen looked very comfortable today. Called her daughter Ophelia around 9:50 AM - she said pt seemed more comfortable overnight, about 2 hours after Ativan she was still crying out in pain. Daughter left around midnight, reported nursing care was very good. Agrees with stopping Flagyl today. Additional Comments: Unable to assess ROS due to AMS Medications Current Inpatient Medications Medications (Trade) Dose Ordered Sig/Jen Route Start Time Stop Time Status Last Admin Dose Admin Ondansetron HCl (Zofran Inj) 4 mg Q6H PRN IV 02/12/17 14:00 03/14/17 13:59 Acetaminophen (Tylenol Supp) 650 mg Q4H PRN [place] 02/12/17 14:45 03/14/17 14:44 02/13/17 16:02 650 MG Nystatin (Mycostatin Susp) 5 ml QID PO 02/13/17 09:00 02/23/17 08:59 Metronidazole 500 mg/Prmx 100 ml @ 100 mls/hr Q8H IV 02/13/17 20:00 02/27/17 19:59 02/15/17 03:47 100 MLS/HR Morphine Sulfate (MoRPHine SULFATE INJ) 1 mg Q2H PRN IV 02/14/17 18:00 02/28/17 17:59 Lorazepam 1 mg/ Syringe 1 ml @ 0.5 mls/min Q4H PRN IV 02/14/17 18:00 03/16/17 17:59 02/14/17 21:40 0.5 MLS/MIN Glycopyrrolate (Robinul Inj) 0.2 mg Q4H PRN IV 02/14/17 18:00 03/16/17 17:59 Objective Vital Signs Date Time Temp Pulse Resp B/P (MAP) Pulse Ox O2 Delivery O2 Flow Rate FiO2 02/15/17 01:58 Room Air 02/14/17 20:30 Room Air 02/14/17 16:00 Room Air 02/14/17 15:10 36.8 78 16 160/96 (117) 97 Room Air Physical Exam General Appearance: no apparent distress, + cachetic, + thin Eyes: normal inspection Respiratory/Chest: no respiratory distress, no accessory muscle use Extremities: no pedal edema Neurologic/Psychiatric: + pertinent finding (sleeping comfortably. does not respond to voice.) Assessment and Plan 66 yo F, end-stage multiple sclerosis, previous resident of [facility] on comfort measures only. - Will continue current management. Ativan changed to 0.5mg q2h IV PRN, with 1mg q4h PRN still present if needed. Morphine for shortness of breath. Will place Scopolamine patch as well. Continue oral care as tolerated. - C Diff Colitis: Flagyl stopped today. - May eventually need Dispo planning back to [facility]. Daughter is POA and agrees, but pt's sister is adamant against returning there. Family wants her to maintain comfort first. Resident Physician Supervision Note: I interviewed and examined the patient. Discussed with Dr. Argueta and agree with findings and plan as documented in the note. Any exceptions or clarifications are listed here: None Documented By: Aubrey Boyd no HPI or ROS obtainable. visited w dr argueta when family present. pt comfortable, family very pleased with care metabolic encephalopathy related to UTI and Cdiff superimposed on what appears to be baseline of severe MS/depression -abx, supportive care -family discussions on goals of care have led to conclusion of comfort severe protein calorie malnutrition -family discussion on goals of care have led to conclusion of comfort anxiety/fear - ativan prn, has been doing fairly well actually otherwise as above otherwise as above Resident Tracking Resident Involvement: Resident Care Provided Care Provided: Adult Hospital Medicine
[2017-02-15] MEDS ORDERED: SCOPOLAMINE 1.5 MG TDSY TD PRN (10:15)
[2017-02-15 13:36] VITALS: TEMP 37.3
[2017-02-15] MEDS: ACETAMINOPHEN 650 MG SUPP PR PRN (13:38)
[2017-02-15] MEDS: SCOPOLAMINE 1.5 MG TDSY TD SCH (14:57)
[2017-02-15] MEDS: CHECK SCOPOLAMINE PATCH PLACEMENT SCH (16:04)
[2017-02-15 16:48] VITALS: PULSE 106; TEMP 36.9
[2017-02-15] MEDS: LORAZEPAM INJ 1 MG in SYRINGE 0.5 ML IV PRN (16:59)
[2017-02-15] MEDS: MoRPHine SULFATE 2 MG/ML CARP IV PRN (18:39)
[2017-02-16] MEDS: CHECK SCOPOLAMINE PATCH PLACEMENT SCH ×4 (00:04→23:35)
[2017-02-16] MEDS: NYSTATIN SUSP 500,000 U/5 ML UDC PO SCH ×4 (08:00→20:00)
[2017-02-16 14:13] VITALS: PULSE 143; O2SAT 97
[2017-02-16] MEDS: MoRPHine SULFATE 2 MG/ML CARP IV PRN ×3 (14:13→23:18)
[2017-02-16 14:54] VITALS: PULSE 115; O2SAT 97
--- NOTE | 2017-02-16 15:14 | Family Medicine Progress Note ---
Progress Note Date of Service Feb 16, 2017. Subjective Pt evaluation today including: conversation w/ family, lab review, review of studies, conversation w/ construction safety consultant, review of inpatient medication list Pain: none PO Intake: not eating Voiding: guevara catheter in place Patient with no acute events overnight Spoke to daughter at the bedside who is tearful with regards to patient going back to [facility]. Explains that she is currently in a legal franco with [facility] and does not want her mother to go back there. Was notified by case management today that it has been difficult finding a different facility for the patient to go to. Patient appears comfortable and has been in no distress overnight Additional Comments: unable to get ROS as patient is asleep Medications Current Inpatient Medications Medications (Trade) Dose Ordered Sig/Jen Route Start Time Stop Time Status Last Admin Dose Admin Ondansetron HCl (Zofran Inj) 4 mg Q6H PRN IV 02/12/17 14:00 03/14/17 13:59 Acetaminophen (Tylenol Supp) 650 mg Q4H PRN [place] 02/12/17 14:45 03/14/17 14:44 02/15/17 13:38 650 MG Nystatin (Mycostatin Susp) 5 ml QID PO 02/13/17 09:00 02/23/17 08:59 Morphine Sulfate (MoRPHine SULFATE INJ) 1 mg Q2H PRN IV 02/14/17 18:00 02/28/17 17:59 02/16/17 14:13 1 MG Lorazepam 1 mg/ Syringe 1 ml @ 0.5 mls/min Q4H PRN IV 02/14/17 18:00 03/16/17 17:59 02/15/17 16:59 0.5 MLS/MIN Glycopyrrolate (Robinul Inj) 0.2 mg Q4H PRN IV 02/14/17 18:00 03/16/17 17:59 Lorazepam 0.5 mg/ Syringe 1 ml @ 0.5 mls/min Q2H PRN IV 02/15/17 10:00 03/17/17 09:59 Miscellaneous Information (Check Scopolamine Patch Placement) 1 ea QS N/A 02/15/17 16:00 03/17/17 15:59 02/16/17 08:40 1 EA Scopolamine (Transderm-Scop Patch) 1.5 mg Q72H TD 02/15/17 15:00 03/17/17 14:59 02/15/17 14:57 1.5 MG Miscellaneous (Remove Transderm-Scop Patch) 1 ea Q72H N/A 02/18/17 14:59 03/20/17 14:58 Objective Vital Signs Date Time Temp Pulse Resp B/P (MAP) Pulse Ox O2 Delivery O2 Flow Rate FiO2 02/16/17 14:54 115 28 97 02/16/17 14:13 143 32 97 Room Air 02/16/17 08:00 Room Air 02/16/17 00:49 Room Air 02/15/17 20:56 Room Air 02/15/17 16:48 36.9 106 24 Room Air 02/15/17 16:00 Room Air Physical Exam General Appearance: WD/WN, no apparent distress, + cachetic Eyes: normal inspection Respiratory/Chest: no respiratory distress, no accessory muscle use Notes: Did not fully examine patient as she was sleeping and is currently on comfort measures and in no distress Assessment and Plan 66 yo F, end-stage multiple sclerosis, previous resident of [facility] on comfort measures only. - Will continue current management. Ativan changed to 0.5mg q2h IV PRN, with 1mg q4h PRN still present if needed. Morphine for shortness of breath. Will place Scopolamine patch as well. Tylenol suppository for fever - C Diff Colitis: Flagyl stopped yesterday - Daughter does not want patient to go to [facility] as they are currently in a legal franco with them. Case management currently working to see if there are any other options. Continued [facility] stay due to: other History Resident Physician Supervision Note: I was present with Dr. Arredondo during the history and exam. I discussed the case with the resident and agree with the findings and plan as documented in the note. Any exceptions or clarifications are listed here. Pt sedated and sleeping in bed during examination, deferred awakening 2/2 comfort measures and patient anxiety with examinations. Daughter at bedside reports considerable improvement of presenting symptoms on present regimen. Generally, the patient's daughter (POA) understands the desire to get the patient to someplace comfortable with appropriate supports and care to transition "[place] the [place]" however is stymied by her choices, chiefly the family's desire not to return to [facility]. I have inquired w/ Sadaf and will present further options tomorrow as they are relayed to me. General Appearance: no apparent distress, cachetic Respiratory: no respiratory distress, other (tachypnea) Assessment/Plan 66 yo F, end-stage multiple sclerosis, previous resident of [facility] on comfort measures only End stage MS - Continue Ativan at present regimen with consideration to transition to PO in preparation for removal of IV - Morphine for pain and tachypnea as needed with similar considerations - Scopolamine patch for secretions, will d/c order for IV glycopyrrholate C. diff colitis - presently off abx therapy 2/2 above
[2017-02-16 17:45] VITALS: PULSE 203; O2SAT 97
[2017-02-16] MEDS: LORAZEPAM INJ 1 MG in SYRINGE 0.5 ML IV PRN ×2 (18:13→23:35)
[2017-02-17] MEDS: MoRPHine SULFATE 2 MG/ML CARP IV PRN ×6 (06:34→21:36)
[2017-02-17] MEDS: LORAZEPAM INJ 1 MG in SYRINGE 0.5 ML IV PRN (06:44)
[2017-02-17] MEDS: NYSTATIN SUSP 500,000 U/5 ML UDC PO SCH ×4 (08:00→20:00)
[2017-02-17] MEDS: CHECK SCOPOLAMINE PATCH PLACEMENT SCH ×2 (08:17→16:22)
--- NOTE | 2017-02-17 08:50 | Family Medicine Progress Note ---
Progress Note Date of Service Feb 17, 2017. Subjective Pt evaluation today including: chart review, conversation w/ [employer] consultant, review of inpatient medication list PO Intake: NPO Voiding: guevara catheter in place Patient with no acute events overnight No family at the bedside when I saw the patient this morning Patient appears obtunded and is non responsive to questioning Additional Comments: unable to obtain review of systems as patient is non responsive to questioning Medications Current Inpatient Medications Medications (Trade) Dose Ordered Sig/Jen Route Start Time Stop Time Status Last Admin Dose Admin Ondansetron HCl (Zofran Inj) 4 mg Q6H PRN IV 02/12/17 14:00 03/14/17 13:59 Acetaminophen (Tylenol Supp) 650 mg Q4H PRN [place] 02/12/17 14:45 03/14/17 14:44 02/15/17 13:38 650 MG Nystatin (Mycostatin Susp) 5 ml QID PO 02/13/17 09:00 02/23/17 08:59 Morphine Sulfate (MoRPHine SULFATE INJ) 1 mg Q2H PRN IV 02/14/17 18:00 02/28/17 17:59 02/17/17 06:34 1 MG Lorazepam 1 mg/ Syringe 1 ml @ 0.5 mls/min Q4H PRN IV 02/14/17 18:00 03/16/17 17:59 02/17/17 06:44 0.5 MLS/MIN Glycopyrrolate (Robinul Inj) 0.2 mg Q4H PRN IV 02/14/17 18:00 03/16/17 17:59 Lorazepam 0.5 mg/ Syringe 1 ml @ 0.5 mls/min Q2H PRN IV 02/15/17 10:00 03/17/17 09:59 Miscellaneous Information (Check Scopolamine Patch Placement) 1 ea QS N/A 02/15/17 16:00 03/17/17 15:59 02/17/17 08:17 1 EA Scopolamine (Transderm-Scop Patch) 1.5 mg Q72H TD 02/15/17 15:00 03/17/17 14:59 02/15/17 14:57 1.5 MG Miscellaneous (Remove Transderm-Scop Patch) 1 ea Q72H N/A 02/18/17 14:59 03/20/17 14:58 Objective Vital Signs Date Time Temp Pulse Resp B/P (MAP) Pulse Ox O2 Delivery O2 Flow Rate FiO2 02/17/17 00:07 Room Air 02/16/17 20:04 Room Air 02/16/17 17:45 203 36 97 02/16/17 16:00 Room Air 02/16/17 14:54 115 28 97 02/16/17 14:13 143 32 97 Room Air Physical Exam General Appearance: WD/WN, no apparent distress Respiratory/Chest: no respiratory distress, no accessory muscle use Notes: Patient appears comfortable and in no distress Non labored breathing Assessment and Plan 66 yo F, end-stage multiple sclerosis, previous resident of [facility] on comfort measures only. - Will continue current management. Ativan changed to 0.5mg q2h IV PRN, with 1mg q4h PRN still present if needed. Morphine for shortness of breath. Will place Scopolamine patch as well. Tylenol suppository for fever. Morphine increased to 2mg q2 for shortness of breath as patients respiratory rate has been in the 30's - C Diff Colitis: Flagyl stopped 2 days ago - Daughter does not want patient to go to [facility] as they are currently in a legal franco with them. Case management currently working to see if there are any other options. - Will follow up with family this afternoon and case management to discuss home hospice vs other places to go for comfort measures. Patient currently appears comfortable Continued [facility] stay due to: other History Resident Physician Supervision Note: I was present with Dr. Arredondo during the history and exam. I discussed the case with the resident and agree with the findings and plan as documented in the note. Any exceptions or clarifications are listed here. Pt obtunded but did open eyes to voice. Still unresponsive to verbal inquiry or command but without agitation complaint from family or nursing. General Appearance: cachetic Skin Characteristics: normal color, warm/dry Assessment/Plan 66 yo F, end-stage multiple sclerosis, previous resident of [facility] on comfort measures only End stage MS - Continue Ativan at present regimen with consideration to transition to PO in preparation for removal of IV - Morphine for pain and tachypnea as needed with similar considerations - Scopolamine patch for secretions C. diff colitis - presently off abx therapy 2/2 above
[2017-02-18] VITALS (8 sets, daily range): TEMP 38.1–39.9
[2017-02-18] MEDS: MoRPHine SULFATE 2 MG/ML CARP IV PRN ×7 (00:11→12:55)
[2017-02-18] MEDS: CHECK SCOPOLAMINE PATCH PLACEMENT SCH ×3 (00:13→15:19)
[2017-02-18] MEDS: LORAZEPAM INJ 1 MG in SYRINGE 0.5 ML IV PRN (01:09)
--- NOTE | 2017-02-18 07:53 | Family Medicine Progress Note ---
Progress Note Date of Service Feb 18, 2017.
[2017-02-18] MEDS: NYSTATIN SUSP 500,000 U/5 ML UDC PO SCH ×4 (08:00→20:00)
[2017-02-18] MEDS: ACETAMINOPHEN 650 MG SUPP PR PRN ×3 (08:51→20:22)
[2017-02-18] MEDS ORDERED: NURSING VERBAL MED ORDER ONE ×4 (09:45→18:15)
[2017-02-18] MEDS: ARTIFICIAL TEARS OP SOLN OP SCH ×14 (10:48→22:18)
--- NOTE | 2017-02-18 11:20 | Family Medicine Progress Note ---
Progress Note Date of Service Feb 18, 2017. Subjective Voiding: guevara catheter in place Patient continues to spike high fevers and have high RR overnight Still on Morphine 2mg Was given tylenol suppository for fever however the patient continues to spike high fevers Additional Comments: unable to obtain ROS as patient non responsive Medications Current Inpatient Medications Medications (Trade) Dose Ordered Sig/Jen Route Start Time Stop Time Status Last Admin Dose Admin Ondansetron HCl (Zofran Inj) 4 mg Q6H PRN IV 02/12/17 14:00 03/14/17 13:59 Acetaminophen (Tylenol Supp) 650 mg Q4H PRN CO 02/12/17 14:45 03/14/17 14:44 02/18/17 08:51 650 MG Nystatin (Mycostatin Susp) 5 ml QID PO 02/13/17 09:00 02/23/17 08:59 Lorazepam 1 mg/ Syringe 1 ml @ 0.5 mls/min Q4H PRN IV 02/14/17 18:00 03/16/17 17:59 02/18/17 01:09 0.5 MLS/MIN Glycopyrrolate (Robinul Inj) 0.2 mg Q4H PRN IV 02/14/17 18:00 03/16/17 17:59 Lorazepam 0.5 mg/ Syringe 1 ml @ 0.5 mls/min Q2H PRN IV 02/15/17 10:00 03/17/17 09:59 02/17/17 20:35 0.5 MLS/MIN Miscellaneous Information (Check Scopolamine Patch Placement) 1 ea QS N/A 02/15/17 16:00 03/17/17 15:59 02/18/17 08:03 1 EA Scopolamine (Transderm-Scop Patch) 1.5 mg Q72H TD 02/15/17 15:00 03/17/17 14:59 02/15/17 14:57 1.5 MG Miscellaneous (Remove Transderm-Scop Patch) 1 ea Q72H N/A 02/18/17 14:59 03/20/17 14:58 Morphine Sulfate (MoRPHine SULFATE INJ) 2 mg Q2H PRN IV 02/17/17 09:00 02/28/17 17:59 02/18/17 10:47 2 MG Artificial Tears (Artificial Tears) 1 drops Q2H OP 02/18/17 10:00 03/20/17 09:59 02/18/17 10:48 1 DROPS Objective Vital Signs Date Time Temp Pulse Resp B/P (MAP) Pulse Ox O2 Delivery O2 Flow Rate FiO2 02/18/17 10:46 39.5 26 02/18/17 08:46 39.4 02/18/17 08:15 40 02/18/17 08:00 Room Air 02/18/17 00:00 Room Air 02/17/17 20:00 Room Air 02/17/17 16:46 38 02/17/17 16:00 Room Air Physical Exam General Appearance: WD/WN, no apparent distress Respiratory/Chest: no respiratory distress, no accessory muscle use Notes: Did not examine patient as she was non responsive and comfortable and do not want to worsen anxiety Assessment and Plan 66 yo F, end-stage multiple sclerosis, previous resident of [facility] on comfort measures only. - Will continue current management. Ativan changed to 0.5mg q2h IV PRN, with 1mg q4h PRN still present if needed. Morphine for shortness of breath. Will place Scopolamine patch as well. Tylenol suppository for fever. Morphine increased to 2mg q2 for shortness of breath as patients respiratory rate has been in the 30's - RR is elevated above 30 and temp continues to be elevated. Asked nurse to page us when family is here to discuss morphine drip in order to keep the patient comfortable - C Diff Colitis: Flagyl stopped 2 days ago - Daughter does not want patient to go to [facility] as they are currently in a legal franco with them. Case management currently working to see if there are any other options. - Will follow up with family this afternoon and case management to discuss home hospice vs other places to go for comfort measures. Patient currently appears comfortable Continued [facility] stay due to: multiple IV medications needed History Resident Physician Supervision Note: I was present with Dr. Arredondo during the history and exam. I discussed the case with the resident and agree with the findings and plan as documented in the note. Any exceptions or clarifications are listed here. Pt is unresponsive to voice and does not appear agitation or uncomfortable. Fever overnight treated with CO acetaminophen. Requiring q2hrly morphine administration at this time for comfort with episodic agitation between. No current eye care. General Appearance: cachetic Respiratory: respiratory distress, accessory muscle use Cardiovascular: tachycardia Assessment/Plan 66 yo F, end-stage multiple sclerosis, previous resident of [facility] on comfort measures only End stage MS - at this point, the patient's symptoms would warrant more intensive management of agitation likely 2/2 respiratory failure. Will convert to morphine drip at same rate as current dosing and can escalate as needed for symptom control. Continue scopolamine patch. Can use ativan for breakthrough agitation, but at this time would favor increasing morphine in lieu of benzodiazepine. Routine eye care w/ lubricating drops. Tylenol PRN fever
[2017-02-18] MEDS: MORPHINE SULF/NSS 250MG/250ML IV PRN ×3 (14:12→18:00)
[2017-02-18] MEDS: SCOPOLAMINE 1.5 MG TDSY TD SCH (15:19)
[2017-02-19] MEDS: CHECK SCOPOLAMINE PATCH PLACEMENT SCH (00:02)
[2017-02-19] MEDS: ARTIFICIAL TEARS OP SOLN OP SCH ×2 (00:02)
[2017-02-19] MEDS: ACETAMINOPHEN 650 MG SUPP PR PRN (00:25)
--- NOTE | 2017-02-19 18:14 | Death Summary ---
Summary of Admission Date Feb 12, 2017 at 14:24 (Shayne Arredondo MD) Date & Time of Feb 19, 2017. 0200 (Shayne Arredondo MD) Cause of Sepsis from UTI and c.diff (Shayne Arredondo MD) Hospital Course Patient is a 66 year old female with Multiple sclerosis that presented with a 3 day history of weakness and altered mental status on 02/14/17 Found to have UTI and and was started on vanc, zosyn and was started on IV fluids. She was also having diarrhea and was therefore started on flagyl. On 02/16/2017 patient was not communicating, making eye contact and was unable to recognize family members. Patient was also refusing all meds and it was decided to discuss further care with the family. At 5:30 pm a family meeting was held and it was agreed to transition to comfort care measures and patient was transitioned to 4W. Patient was started on ativan, morphine, scopolamine patch and tylenol. Patient continued to rest comfortably over the next couple days and on 02/18 she was transitioned to a morphine drip as her resp rate was increased to the 30's. This was discussed and was agreed upon by the patients daughter. Patient at 2am on 02/19/17 (Shayne Arredondo MD) Copy To [facility]; Orlin Cortez M.D. History Resident Physician Supervision Note: I was present with Dr. Arredondo during the history and exam. I discussed the case with the resident and agree with the findings and plan as documented in the note. Any exceptions or clarifications are listed here. Patient with end stage MS w/ sepsis from multiple infections managed with comfort care on the floors. (Tejas Broussard MD)
--- NOTE | 2017-03-01 17:29 | EDITING REQUIRED CODING QUERY ---
CODING QUERY To promote full compliance with coding requirements relating to patient care, provider participation is requested in all cases of casino cage manager uncertainty. Please assist us with the question(s) below: Coding Question(s): Dr. Broussard, Please clarify if sepsis was: ( ) POA ( ) Not POA ( ) Other, please explain Please list organism responsible for sepsis, if known: Physician's Response(s): Thank you for your time, CHASIDY Kingsley, TELECOMMUNICATIONS REPAIRER
== END 2017-02-19 04:46 | disposition expired | DRG 871 ==
LOC: EDBD 10:23 → C.EDA 10:25 → C.MED 14:24 → ENRESERV 14:26 → C.MS4W 02-14 18:40
PROVIDERS: ADMIT Student in an Organized Health Care Education/Training Program; ATTEND Family Medicine
DX: A41.9 Sepsis, unspecified organism (principal); G93.41 Metabolic encephalopathy; E43 Unspecified severe protein-calorie malnutrition; N39.0 Urinary tract infection, site not specified; Z68.1 Body mass index [BMI] 19.9 or less, adult; A04.7 Enterocolitis due to Clostridium difficile; B37.0 Candidal stomatitis; R64 Cachexia; B96.20 Unspecified Escherichia coli [E. coli] as the cause of diseases classified elsewhere; E86.0 Dehydration; R45.1 Restlessness and agitation; G35 Multiple sclerosis; R32 Unspecified urinary incontinence; K59.00 Constipation, unspecified; L89.522 Pressure ulcer of left ankle, stage 2; F32.9 Major depressive disorder, single episode, unspecified; F41.9 Anxiety disorder, unspecified; Z51.5 Encounter for palliative care; Z66 Do not resuscitate; Z53.29 Procedure and treatment not carried out because of patient's decision for other reasons; Z74.01 Bed confinement status; Z79.891 Long term (current) use of opiate analgesic; Z79.899 Other long term (current) drug therapy

== ENCOUNTER → 2017-02-12 | Outpatient (CLI) | payer OTHER ==
[2017-02-12 17:36] LABS: MANUAL MICROSCOPIC REQUIRED? NO; REVIEW REQ? YES; URINE APPEARANCE TURBID (CLEAR); URINE COLOR ORANGE; URINE EPITHELIAL CELL AUTO >30 /lpf (0-5); URINE NITRITE POS (NEG); URINE PH 5.5 (4.5-7.5); URINE SPECIFIC GRAVITY 1.025 (1.000-1.030); UROBILINOGEN NEG (NEG)
[2017-02-12 17:37] LABS: URINE BILIRUBIN NEG (NEG)
[2017-02-12 18:05] LABS: URINE MUCUS PRESENT (NONE PRSENT)
== END | disposition home or self-care (01) ==
LOC: C.LABCC 17:02
PROVIDERS: ATTEND Internal Medicine
DX: R53.83 Other fatigue (principal)